=== PATIENT | female | born 1990 | race African-American/Black ===

== ENCOUNTER 2017-03-17 16:06 | Emergency (ER) | payer OTHER ==
[~2017-03-17] VITALS: Ht 162.6 cm; Wt 84.3 kg
[~2017-03-17 16:06] MED LIST: AMOXICILLIN500 M1 PO; LORTAB 5-325 M1 EACH PO; MOTRIN600 MG PO; MOTRIN800 MG PO; PRENATAL1 EACH PO; REGLAN10 MG PO; ZOFRAN ODT4 MG PO
[2017-03-17 18:06] VITALS: BP 145/84
== END 2017-03-17 18:06 | disposition home or self-care (01) ==
LOC: EME 16:06
DX: S69.92XA Unspecified injury of left wrist, hand and finger(s), initial encounter (principal); S93.409A Sprain of unspecified ligament of unspecified ankle, initial encounter; W01.0XXA Fall on same level from slipping, tripping and stumbling without subsequent striking against object, initial encounter
CPT/HCPCS: 73130; 73610; 99281; 99283

== ENCOUNTER 2017-05-26 12:31 | Emergency (ER) | payer OTHER ==
[~2017-05-26] VITALS: Ht 162.6 cm; Wt 79.9 kg
[2017-05-26] MEDS ORDERED: FLEXERIL5 MG PO (17:08)
[2017-05-26] MEDS ORDERED: NAPROSYN500 MG PO (17:08)
[2017-05-26 17:32] VITALS: BP 116/75
== END 2017-05-26 17:35 | disposition home or self-care (01) ==
LOC: EME 12:31
DX: M79.604 Pain in right leg (principal); M79.605 Pain in left leg; M79.1 Myalgia; Z87.891 Personal history of nicotine dependence
CPT/HCPCS: 93970; 99281; 99284